=== PATIENT | female | born 1990 | race Two or more races ===

== ENCOUNTER 2018-06-17 23:47 | Emergency (ER) | payer OTHER ==
[2018-06-18 00:32] LABS: Basophils # (auto) 0.1 uL; Hemoglobin 12.5 g/dL (12.2-16.2)
[2018-06-18 00:34] LABS: Basophils % (auto) 0.9 % (0.0-2.0); Eosinophils # (auto) 0.1 uL; Eosinophils % (auto) 0.4 % (0.0-7.0); Hematocrit 37.8 % (36.0-46.0); Lymphocytes # (auto) 1.8 uL; Mean Corpuscular Hemoglobin 26.1 pg (28.0-32.0); Mean Corpuscular Hgb Conc. 32.9 g/dL (32.0-36.0); Mean Corpuscular Volume 79.2 fL (80.0-100.0); Monocytes # (auto) 0.7 uL; Monocytes % (auto) 4.9 % (0.0-12.0); Neutrophils # (auto) 12.4 uL; Neutrophils % (auto) 81.8 % (37.0-80.0); Platelet Count (auto) 289 10^3/uL (140-450); Red Blood Cells 4.77 10^6/uL (4.0-5.20); Red Cell Distribution Width 14.6 % (11.8-14.3); White Blood Cell 15.1 10^3/uL (4.4-10.8)
[2018-06-18 00:36] LABS: Urine Bacteria FEW /hpf (None Seen); Urine Blood 2+ /uL (Negative); Urine Specific Gravity 1.024 (1.001-1.035); Urine WBC 5 /hpf (0 - 5)
[2018-06-18 00:50] LABS: Albumin 3.6 g/dL (3.4-5.0); BUN/Creatinine Ratio 20.6; Calcium 8.4 mg/dL (8.5-10.1); Potassium 3.6 mmol/L (3.5-5.1)
[2018-06-18 00:53] LABS: Bilirubin, Total 0.3 mg/dL (0.2-1.0); Total Protein 8.1 g/dL (6.4-8.2)
[2018-06-18 01:28] LABS: Amylase 25 U/L (25-115); Lipase 106 U/L (73-393)
[2018-06-18] MEDS ORDERED: LEVOFLOXACIN 750MG 150 ML IV ONE (02:30)
[2018-06-18] MEDS ORDERED: SODIUM CHLORIDE 0.9% 1,000 ML IV ONE (02:30)
[2018-06-18] MEDS ORDERED: ONDANSETRON HCL 4 MG/2 ML VIAL IV ONE (03:30)
[2018-06-18] MEDS ORDERED: NALBUPHINE HCL 10 MG/1ml INJECTION IV ONE (03:30)
[2018-06-18 03:44] VITALS: BP 132/82
== END 2018-06-18 04:50 | disposition home or self-care (01) ==
LOC: ER 23:52
DX: N39.0 Urinary tract infection, site not specified (principal); R16.0 Hepatomegaly, not elsewhere classified; J45.909 Unspecified asthma, uncomplicated
CPT/HCPCS: 36415; 74176; 80053; 81001; 82150; 83036; 83690; 84484; 85025; 96365; 96375; 99285; J2300; J2405; J7030